=== PATIENT | female | born 1945 | race Caucasian/White ===

== ENCOUNTER 2025-03-06 12:30 | Emergency (ER) | payer MEDICARE, BC, SELFPAY ==
[2025-03-06 12:34] VITALS: BP 159/86
--- NOTE | 2025-03-06 16:09 | DOWNTIME ---
There was a [employer] Downtime on 03/06/2025 from 1230 to 03/06/2025 at 1550. Downtime documentation of patient's care, including medication administrations, has been reconciled in the electronic record per guidelines. Refer to the
patient's paper chart under the miscellaneous tab to see printed paper medication records and downtime forms.
--- NOTE | 2025-03-06 16:23 | ED.GENMED ---
History of Present Illness
General
Chief Complaint: Skin Problem
Time Seen by Provider: 03/06/25 16:07
History of Present Illness
History of Present Illness:
Patient is a 79-year-old woman with history of hypertension presenting to the emergency department with concerns for an infection on her cheek.� Patient states that 2 days ago she noticed 2 black dots to her right cheek.� Yesterday there was some
swelling and discoloration.� Today there was an area of redness and clear discharge.� She denies any fevers or chills.� No blurry vision.� No headache.� No tooth problems.� This is never happened to her before.
Past History
Past History
ED Past Medical History: HTN, Hypercholesterolemia and Valvular disease
ED Past Surgical History: Other (Bowel surgery)
Social History
Tobacco: Non-smoker
Personal:
Living: with family
Employment: Retired
Phy Exam
Physical Exam
Physical Exam:
GENERAL: in no acute distress
HEENT: normocephalic, extraocular movements intact, visual acuity grossly intact, right cheek just under the zygomatic arch with dried serous fluid and mild erythema with induration, no obvious fluctuance moist oral mucosa, no obvious abscess
intraorally,
NECK: normal inspection
RESPIRATORY: no respiratory distress
CARDIOVASCULAR: regular rate and rhythm
EXTREMITIES: non-tender, no edema/swelling
NEUROLOGIC: awake and alert, moves all extremities
SKIN: warm
Course
Orders/Labs/Results
Orders:
Orders
03/06/25 14:06
CT Facial Bones W/ Iv Contrast Urgent
Reason For Exam: Bug bite right side of face/ meditech was down
03/06/25 14:48
Basic Metabolic Panel Routine
Complete Blood Count/With Diff Routine
Abnormal Lab Results
03/06/25
14:48
RBC 3.66 L 10^6/uL
(4.20-5.40)
Hgb 11.7 L g/dL
(12.0-16.0)
Hct 34.1 L %
(37.0-47.0)
MCH 32.0 H pg
(27.0-31.0)
MPV 10.5 H fL
(7.4-10.4)
Absolute Monos (auto) 0.9 H 10^3/uL
(0.1-0.6)
Monocytes % 13.4 H %
(1.7-9.3)
03/06/25 14:48
Vital Signs
Initial and Last Documented VS:
Initial Vital Signs
Temp Pulse Resp BP Pulse Ox
98.6 F 76 16 159/86 97
03/06/25 12:34 03/06/25 12:34 03/06/25 12:34 03/06/25 12:34 03/06/25 12:34
Last Documented Vital Signs
Temp Pulse Resp BP Pulse Ox
98.6 F 76 16 159/86 97
03/06/25 12:34 03/06/25 12:34 03/06/25 12:34 03/06/25 12:34 03/06/25 12:34
MDM/Problems Addressed
Differential Diagnosis Includes:
Patient is a 79-year-old woman presenting to the emergency department with concern for infection to her right cheek.� On arrival patient is afebrile. �Exam does show small area of serous drainage that is dry to the right cheek with mild erythema and
induration.� No obvious fluctuance or areas that are actively draining.� Concern for cellulitis versus abscess. �Patient is very well-appearing so less likely to be deeper infection.� After shared decision making we will proceed with CT scan and
obtain basic blood work.
*Critical Care Note
Total Time (30-74mins, 75-104mins- exclusive of procedures): Not Applicable
Update Note
Update Note:
Blood work shows a normal white count. CT suggestive of cellulitis with no drainable abscess. Will discharge patient on antibiotics.
ED Attending Note
-
Portions of this chart may have been created with voice recognition software.� Occasional wrong word or��sound alike� substitutions may have occurred due to the inherent limitations of voice recognition software.
Discharge Plan
Departure
Patient Disposition: Home (Routine Discharge)
Date of Disposition: 03/06/25
Time of Disposition: 16:54
Patient with high blood pressure during this ER visit?: No
Discharge Problem:
Cellulitis
Instructions: Cellulitis (Skin Infection), Adult (DC)
Prescriptions:
New
cephalexin 500 mg tablet
500 mg PO QID 5 Days Qty: 20 0RF
doxycycline hyclate 100 mg tablet
100 mg PO BID 7 Days Qty: 14 0RF
Referrals:
Lakhwinder Laguna MD [Family Provider, Internal Medicine]
Interventions
Interventions:
*Risk Screen - Suicide Last Done: 03/06/25 12:34
*General Assessment Last Done: 03/06/25 12:34
*Neglect/Abuse Screening Last Done: 03/06/25 12:34
Discharge Date and Time
Print Language: TANZANIAN
[2025-03-06 16:58] LABS: % Eosinophils 4.6 % (0-6); % Immature Granulocytes 0.3 % (0-0.5); % Lymphocytes 28.9 % (20.5-51.1); % Monocytes 13.4 % (1.7-9.3); % Neutrophils 51.8 % (42.2-75.2); Absolute Basophils 0.1 10^3/uL (0-0.2); Absolute Eosinophils 0.3 10^3/uL (0-0.7); Absolute Lymphocytes 1.9 10^3/uL (1.2-3.4); Absolute Monocytes 0.9 10^3/uL (0.1-0.6); Absolute Neutrophils 3.5 10^3/uL (1.4-6.5); Hematocrit 34.1 % (37.0-47.0); Hemoglobin 11.7 g/dL (12.0-16.0); Mean Corp Hgb Conc. 34.3 g/dL (33.0-37.0); Mean Corpuscular Volume 93.2 fL (81.0-99.0); Mean Platelet Volume 10.5 fL (7.4-10.4); Nucleated Red Blood Cells % 0 %; Platelet Count 231 10^3/uL (130-400); Red Blood Cell Count 3.66 10^6/uL (4.20-5.40); White Blood Cell Count 6.7 10^3/uL (4.8-10.8)
[2025-03-06 17:11] VITALS: BP 148/90
[2025-03-06 17:39] LABS: Blood Urea Nitrogen 20 mg/dl (7-17); Calcium 9.8 mg/dl (8.4-10.2); Carbon Dioxide 27 mmol/L (22-30); Chloride 107 mmol/L (98-107); Glucose 109 mg/dl (70-99); Sodium 141 mmol/L (135-145); eGFR > 60.00
== END 2025-03-06 17:33 | disposition home or self-care (01) ==
LOC: EMR 12:30
PROVIDERS: EMERGENCY PHYSICIAN Student in an Organized Health Care Education/Training Program; FAMILY PHYSICIAN Internal Medicine
DX: L03.211 Cellulitis of face (principal); I10 Essential (primary) hypertension
CPT/HCPCS: 99285; 70487; 80048; 85025; Q9967

== ENCOUNTER 2025-03-08 10:36 | Emergency (ER) | payer MEDICARE, BC, SELFPAY ==
[2025-03-08 10:48] VITALS: BP 120/88
--- NOTE | 2025-03-08 12:38 | ED.GENMED ---
History of Present Illness
General
Chief Complaint: Skin Problem
Source: patient
Exam Limitations: none
Time Seen by Provider: 03/08/25 12:12
Nursing documentation reviewed up to this point in time: agreed with
History of Present Illness
History of Present Illness:
79 yr old female presents to the ED for re-evaluation. Pt was here 2 d ago dx with cellulitis to left side of face . Patient had a CAT scan at that time which was negative for abscess and discharged on antibiotics. She has been taking cephalexin
and doxycycline and took 1 full day's dose and did take a dose today as well however reports area is now spreading. She reports she has increased redness to the right side of the face with no drainage. She denies any fevers but does not feel
herself.
Past History
Past History
ED Past Medical History: HTN, Hypercholesterolemia and Valvular disease
ED Past Surgical History: Other (Bowel surgery)
Social History
Tobacco: Non-smoker
Personal:
Living: with family
Employment: Retired
Review of Systems
Review of Systems
Allergies reviewed?: Yes
All Other Systems: ROS reviewed and negative except as documented in HPI and ROS
Constitutional: Denies fever, fatigue or chills
Musculoskeletal: Reports no symptoms
Skin: Reports other (increasing swelling/redness to right face )
Psychiatric: Reports no symptoms
Phy Exam
General Physical Exam
General Presentation: no apparent distress
General age: appears stated age
General Skin: warm and dry
General Habitus: normal
General Mental: alert
General Hydration: appears well hydrated
Cardiovascular Exam
Cardiovascular Exam: regular rate/rhythm
Pulmonary Exam
Pulmonary Exam: lungs clear and no respiratory distress
Neurological Exam
Neurological Exam: alert and oriented x3
Musculoskeletal Exam
Musculoskeletal Exam: full ROM
Skin Exam
Skin Exam: normal color, warm/dry and other (right face with area of induration and erythema no drainage )
Psychiatric Exam
Psychiatric Exam: normal mood/affect
Course
Orders/Labs/Results
Orders:
Orders
03/08/25 12:45
CT Facial Bones W/ Iv Contrast Urgent
Comment:
Reason For Exam: worsening redness to right face r/o abscess
03/08/25 12:46
IV Insert/Care/Rem.- Treatment PRN
0.9% Sodium Chloride 500 ml [Nss] 500 ml IV BOLUS
03/08/25 12:51
Complete Blood Count/With Diff Urgent
Comprehensive Metabolic Panel Urgent
Abnormal Lab Results
03/08/25
12:51
RBC 3.91 L 10^6/uL
(4.20-5.40)
Hct 36.4 L %
(37.0-47.0)
MCH 31.7 H pg
(27.0-31.0)
MPV 10.7 H fL
(7.4-10.4)
Absolute Monos (auto) 0.9 H 10^3/uL
(0.1-0.6)
Monocytes % 12.4 H %
(1.7-9.3)
Chloride 109 H mmol/L
(98-107)
BUN 18 H mg/dl
(7-17)
Glucose 109 H mg/dl
(70-99)
03/08/25 12:51
03/08/25 12:51
Vital Signs
Initial and Last Documented VS:
Initial Vital Signs
Temp Pulse Resp BP Pulse Ox
99 F 85 16 120/88 97
03/08/25 10:48 03/08/25 10:48 03/08/25 10:48 03/08/25 10:48 03/08/25 10:48
Last Documented Vital Signs
Temp Pulse Resp BP Pulse Ox
99 F 66 18 123/74 98
03/08/25 10:48 03/08/25 15:33 03/08/25 15:33 03/08/25 15:33 03/08/25 15:33
[employer] Director consulted with Physician
[employer] Director consulted with physician?: Yes
Name of Physician Consulted: norma
MDM/Problems Addressed
Differential Diagnosis Includes:
not limited to: cellulitis , abscess
MDM/Problems Addressed:
As documented patient patient was seen 2 days ago diagnosed with right-sided facial cellulitis started on Doxy and KEflex presented for increasing swelling and redness to the area. Patient however is afebrile and in no acute distress no abscess on
CAT scan. She is well-appearing. Case reviewed with ED physician. With no evidence of abscess and patient very well-appearing nontoxic with a normal white count and antibiotics only for the past 2 days will discharge home with continued
antibiotics with close outpatient follow-up. Patient has not been doing well compresses to the area. I did discuss the patient the importance of warm compress and to return if any worsening of s/s
*Critical Care Note
Total Time (30-74mins, 75-104mins- exclusive of procedures): Not Applicable
ED Attending Note
-
Portions of this chart may have been created with voice recognition software.� Occasional wrong word or��sound alike� substitutions may have occurred due to the inherent limitations of voice recognition software.
Discharge Plan
Departure
Patient Disposition: Home (Routine Discharge)
Date of Disposition: 03/08/25
Time of Disposition: 15:45
Patient with high blood pressure during this ER visit?: No
Condition: Fair
Covid-19: Not Applicable
Discharge Problem:
Cellulitis of face
Instructions: Cellulitis (Skin Infection), Adult (DC)
Prescriptions:
No Action
cephalexin 500 mg tablet
500 mg PO QID 5 Days Qty: 20 0RF
doxycycline hyclate 100 mg tablet
100 mg PO BID 7 Days Qty: 14 0RF
Referrals:
Lakhwinder Laguna MD [Family Provider, Internal Medicine]
Activity Restrictions/Additional Instructions:
As discussed please continue to stay on antibiotics as previously prescribed. In addition please apply warm compresses hot soaks to face several times a day. Follow-up with your family doctor Tuesday or Tuesday for reevaluation however if any
worsening of symptoms of (increased pain swelling drainage redness fever chills(, please return to the ER!!!
Interventions
Interventions:
*Risk Screen - Suicide Last Done: 03/08/25 12:14
*General Assessment Last Done: 03/08/25 12:14
*Neglect/Abuse Screening Last Done: 03/08/25 12:14
*ED- Fall Risk Assessment Last Done: 03/08/25 12:14
*ED COVID-19 Vaccine History Last Done: 03/08/25 12:14
*Nursing Disposition Last Done: 03/08/25 15:57
ED-Skin Assessment Last Done: 03/08/25 12:15
Discharge Date and Time
Discharge Date/Time: 03/08/25 16:10
Print Language: [place]
[2025-03-08 12:52] VITALS: BP 122/78
[2025-03-08] MEDS: NSS 500 IV (12:53)
[2025-03-08 12:58] LABS: % Eosinophils 5.7 % (0-6); % Immature Granulocytes 0.3 % (0-0.5); % Lymphocytes 33.1 % (20.5-51.1); % Monocytes 12.4 % (1.7-9.3); % Neutrophils 47.5 % (42.2-75.2); Absolute Basophils 0.1 10^3/uL (0-0.2); Absolute Eosinophils 0.4 10^3/uL (0-0.7); Absolute Lymphocytes 2.3 10^3/uL (1.2-3.4); Absolute Monocytes 0.9 10^3/uL (0.1-0.6); Absolute Neutrophils 3.3 10^3/uL (1.4-6.5); Hematocrit 36.4 % (37.0-47.0); Hemoglobin 12.4 g/dL (12.0-16.0); Mean Corp Hgb Conc. 34.1 g/dL (33.0-37.0); Mean Corpuscular Hgb 31.7 pg (27.0-31.0); Mean Corpuscular Volume 93.1 fL (81.0-99.0); Mean Platelet Volume 10.7 fL (7.4-10.4); Nucleated Red Blood Cells % 0 %; Platelet Count 231 10^3/uL (130-400); Red Blood Cell Count 3.91 10^6/uL (4.20-5.40); Red Cell Dist. Width 12.9 % (11.5-14.5)
[2025-03-08 13:13] LABS: ALT (SGPT) 28 U/L (0-35); AST (SGOT) 23 U/L (14-36); Albumin 4.3 g/dl (3.5-5.0); Alkaline Phosphatase 58 U/L (38-126); Blood Urea Nitrogen 18 mg/dl (7-17); Calcium 9.6 mg/dl (8.4-10.2); Carbon Dioxide 25 mmol/L (22-30); Chloride 109 mmol/L (98-107); Glucose 109 mg/dl (70-99); Potassium 4.3 mmol/L (3.5-5.1); Sodium 138 mmol/L (135-145); Total Bilirubin 0.4 mg/dl (0.2-1.3); Total Protein 6.6 g/dl (6.3-8.2); eGFR > 60.00
[2025-03-08 15:33] VITALS: BP 123/74
== END 2025-03-08 16:10 | disposition home or self-care (01) ==
LOC: EMR 10:36
PROVIDERS: Nurse Practitioner; EMERGENCY PHYSICIAN Student in an Organized Health Care Education/Training Program; FAMILY PHYSICIAN Internal Medicine
DX: L03.211 Cellulitis of face (principal); I10 Essential (primary) hypertension; E78.00 Pure hypercholesterolemia, unspecified
CPT/HCPCS: 99284; 96360; 70487; 80053; 85025; Q9967

== ENCOUNTER 2025-03-16 10:56 | Emergency (ER) | payer MEDICARE, BC, SELFPAY ==
[2025-03-16] VITALS (7 sets, daily range): BP systolic 110–125; BP diastolic 66–79; PULSE 72–85
[2025-03-16 11:17] LABS: % Basophils 0.7 % (0-2); % Eosinophils 6.2 % (0-6); % Immature Granulocytes 0.4 % (0-0.5); % Lymphocytes 29.7 % (20.5-51.1); Absolute Basophils 0.1 10^3/uL (0-0.2); Absolute Eosinophils 0.9 10^3/uL (0-0.7); Absolute Immature Granulocytes 0.1 10^3/uL (0-0.05); Absolute Monocytes 1.2 10^3/uL (0.1-0.6); Absolute Neutrophils 7.4 10^3/uL (1.4-6.5); Hematocrit 36.4 % (37.0-47.0); Hemoglobin 13.1 g/dL (12.0-16.0); Mean Corpuscular Hgb 32.9 pg (27.0-31.0); Mean Corpuscular Volume 91.5 fL (81.0-99.0); Mean Platelet Volume 10.4 fL (7.4-10.4); Nucleated Red Blood Cells % 0 %; Platelet Count 254 10^3/uL (130-400); Red Blood Cell Count 3.98 10^6/uL (4.20-5.40); Red Cell Dist. Width 12.6 % (11.5-14.5); White Blood Cell Count 13.6 10^3/uL (4.8-10.8)
[2025-03-16 11:39] LABS: ALT (SGPT) 22 U/L (0-35); AST (SGOT) 21 U/L (14-36); Albumin 3.9 g/dl (3.5-5.0); Alkaline Phosphatase 46 U/L (38-126); Blood Urea Nitrogen 18 mg/dl (7-17); Calcium 9.6 mg/dl (8.4-10.2); Carbon Dioxide 26 mmol/L (22-30); Chloride 105 mmol/L (98-107); Glucose 103 mg/dl (70-99); Potassium 3.6 mmol/L (3.5-5.1); Sodium 138 mmol/L (135-145); Total Bilirubin 0.5 mg/dl (0.2-1.3); Total Protein 6.4 g/dl (6.3-8.2); eGFR > 60.00
[2025-03-16 11:52] LABS: Troponin I < 0.012 ng/ml
--- NOTE | 2025-03-16 12:57 | EDRN ---
THough pt did not note feeling ' lightheaded' ; she states she just doesn't feel right.
--- NOTE | 2025-03-16 14:18 | ED.GENMED ---
History of Present Illness
General
Chief Complaint: Fainting/Passed Out
Time Seen by Provider: 03/16/25 12:02
History of Present Illness
History of Present Illness:
79-year-old female presents to the emergency department after a syncopal event. Witnessed by , states she was sitting at the kitchen table when she suddenly closed her eyes and was no longer responsive. Estimates this lasted for 5 to 10
minutes before she woke up and seemed normal. Patient denies any current dizziness, lightheadedness, chest pain, or shortness of breath. No preceding chest pain or palpitations. Does note that she is currently on high-dose prednisone for poison
renu dermatitis.
Past History
Past History
ED Past Medical History: HTN, Hypercholesterolemia and Valvular disease
ED Past Surgical History: Other (Bowel surgery)
Social History
Tobacco: Non-smoker
Personal:
Living: with family
Employment: Retired
Review of Systems
Review of Systems
Allergies reviewed?: Yes
All Other Systems: ROS reviewed and negative except as documented in HPI and ROS
Phy Exam
Physical Exam
Physical Exam:
GEN: Well appearing, NAD, WDWN
HEENT: Oral mucosa moist, no scleral icterus, no nasal congestion
Cardiac: Regular rate and rhythm, no murmurs
Lung: No respiratory distress, no tachypnea
MSK: No gross deformity or injuries
Skin: Good color, no pallor or jaundice, no rashes
Neuro: AO x3; CN II-XII grossly intact. BUE strength 5/5 in all mendoza, sensation intact and symmetric. BLE strength 5/5 in all mendoza, sensation intact and symmetric
Psych: Calm, cooperative
Course
Orders/Labs/Results
Orders:
Orders
03/16/25 10:58
EKG [Electrocardiogram (*1)] Urgent
Reason for Study: Syncope
EKG- Treatment ONCE
03/16/25 11:07
CT Head W/o Iv Contrast Urgent
Comment:
Reason For Exam: syncope
03/16/25 11:12
Complete Blood Count/With Diff Urgent
Comprehensive Metabolic Panel Urgent
Troponin I Urgent
03/16/25 12:43
Orthostatic VS- Treatment ONCE
Abnormal Lab Results
03/16/25
11:12
WBC 13.6 H 10^3/uL
(4.8-10.8)
RBC 3.98 L 10^6/uL
(4.20-5.40)
Hct 36.4 L %
(37.0-47.0)
MCH 32.9 H pg
(27.0-31.0)
Abs Immat Gran (auto) 0.1 H 10^3/uL
(0-0.05)
Absolute Neuts (auto) 7.4 H 10^3/uL
(1.4-6.5)
Absolute Lymphs (auto) 4.0 H 10^3/uL
(1.2-3.4)
Absolute Monos (auto) 1.2 H 10^3/uL
(0.1-0.6)
Absolute Eos (auto) 0.9 H 10^3/uL
(0-0.7)
Eosinophils % 6.2 H %
(0-6)
BUN 18 H mg/dl
(7-17)
Glucose 103 H mg/dl
(70-99)
03/16/25 11:12
03/16/25 11:12
Vital Signs
Initial and Last Documented VS:
Initial Vital Signs
Temp Pulse Resp BP Pulse Ox
98.0 F 75 20 121/66 97
03/16/25 11:05 03/16/25 11:05 03/16/25 11:05 03/16/25 11:05 03/16/25 11:05
Last Documented Vital Signs
Temp Pulse Resp BP Pulse Ox
98.0 F 75 16 122/79 97
03/16/25 11:05 03/16/25 13:45 03/16/25 13:45 03/16/25 12:53 03/16/25 11:05
MDM/Problems Addressed
MDM/Problems Addressed:
Patient monitored on telemetry with no events. Labs and EKG are unremarkable. CT of the head without acute intracranial pathology. Likely a vasovagal event, discharged in stable condition. She is advised to decrease her diphenhydramine usage
given her age and consider alternative antihistamine such as cetirizine or fexofenadine
*Critical Care Note
Total Time (30-74mins, 75-104mins- exclusive of procedures): Not Applicable
ED Attending Note
-
Portions of this chart may have been created with voice recognition software.� Occasional wrong word or��sound alike� substitutions may have occurred due to the inherent limitations of voice recognition software.
Discharge Plan
Departure
Patient Disposition: Home (Routine Discharge)
Date of Disposition: 03/16/25
Time of Disposition: 14:20
Patient with high blood pressure during this ER visit?: No
Discharge Problem:
Syncope
Instructions: Syncope (Fainting) (DC)
Prescriptions:
No Action
cephalexin 500 mg tablet
500 mg PO QID 5 Days Qty: 20 0RF
doxycycline hyclate 100 mg tablet
100 mg PO BID 7 Days Qty: 14 0RF
amlodipine 2.5 mg Tablet
2.5 mg PO DAILY
pantoprazole 40 mg Tablet,Delayed Release (Dr/Ec)
40 mg PO BID
metoprolol succinate 25 mg Tablet Extended Release 24 Hr
25 mg PO DAILY
valsartan 40 mg Tablet
20 mg PO TID
rosuvastatin 5 mg Tablet
5 mg PO DAILY
bupropion HCl 150 mg Tablet Extended Release 24 Hr
450 mg PO DAILY
diclofenac epolamine 1.3 % Patch 12 Hour
1 patch TOPICAL BID
olopatadine 0.6 % Universal,Non-Aerosol
2 spray INTRANASAL BID
levothyroxine 25 mcg Capsule
25 mcg PO DAILY
evolocumab 140 mg/mL Pen Injector
140 mg SC Q2W
aspirin 81 mg Capsule
81 mg PO DAILY
turmeric
1 tab PO DAILY
Referrals:
Lakhwinder Laguna MD [Family Provider, Internal Medicine]
Interventions
Interventions:
*Risk Screen - Suicide Last Done: 03/16/25 11:51
*General Assessment Last Done: 03/16/25 11:05
*Neglect/Abuse Screening Last Done: 03/16/25 11:50
*ED- Fall Risk Assessment Last Done: 03/16/25 11:49
*ED COVID-19 Vaccine History Last Done: 03/16/25 11:49
*Nursing Disposition Last Done: 03/16/25 14:41
ED- Cardiac Assessment Last Done: 03/16/25 11:49
ED- Neurological Assessment Last Done: 03/16/25 11:49
Discharge Date and Time
Discharge Date/Time: 03/16/25 14:41
Print Language: TURKMEN
== END 2025-03-16 14:41 | disposition home or self-care (01) ==
LOC: EMR 10:56
PROVIDERS: EMERGENCY PHYSICIAN Emergency Medicine; FAMILY PHYSICIAN Internal Medicine
DX: R55 Syncope and collapse (principal); L23.7 Allergic contact dermatitis due to plants, except food; I10 Essential (primary) hypertension; E78.00 Pure hypercholesterolemia, unspecified; I38 Endocarditis, valve unspecified; Z79.899 Other long term (current) drug therapy; Z79.82 Long term (current) use of aspirin; Z88.0 Allergy status to penicillin; Z91.040 Latex allergy status
CPT/HCPCS: 99285; 70450; 80053; 84484; 85025; 93005

== ENCOUNTER → 2025-05-22 07:07 | Outpatient (REF) | payer MEDICARE, BC, SELFPAY | LOC: MRI 07:07 | PROVIDERS: ATTENDING PHYSICIAN Internal Medicine | DX: M48.062 Spinal stenosis, lumbar region with neurogenic claudication (principal) | CPT/HCPCS: 72148 ==